=== PATIENT | female | born 1975 | race Caucasian/White ===

== ENCOUNTER 2020-02-05 05:34 | Day surgery (SDC) | payer OTHER ==
[2020-02-05] VITALS (9 sets, daily range): BP systolic 92–120; BP diastolic 51–74; PULSE 68–77; TEMP 98.1–98.2
[~2020-02-05] VITALS: Ht 170.2 cm; Wt 77.3 kg
[2020-02-05] MEDS ORDERED: NORCO 325 MG-51 TAB PO ×2 (06:32→10:44)
--- NOTE | 2020-02-05 09:50 | NUR ---
Patient returns to room 7 per cart from surgery and arouses to verbal stimuli. IV fluids infusing and site is free of redness. Temp 98.6 and room air sats 96%. Siderails up x2 and call light in reach. Foot of cart elevated and ice on the left ankle. Toes warm to touch. Son Angel in the room to interpret as needed.
--- NOTE | 2020-02-05 10:05 | NUR ---
Taking few sips of water. Denies pain or nausea when asked. States that the left leg is numb due to block placed pre-op for post op pain control. Foot of cart remains elevated.
--- NOTE | 2020-02-05 10:20 | NUR ---
Continues to rest without complaints of pain or nausea.
--- NOTE | 2020-02-05 10:35 | NUR ---
Taking few sips of water. Rests with eyes closed when not disturbed.
[2020-02-05] MEDS ORDERED: ROXICODONE 55 MG/TAB PO (10:43)
--- NOTE | 2020-02-05 10:50 | NUR ---
Continues to rest with eyes closed.
--- NOTE | 2020-02-05 11:20 | NUR ---
Continues to rest with eyes closed and offers no complaints of discomfort.
--- NOTE | 2020-02-05 11:50 | NUR ---
More awake now and taking sips of water.
--- NOTE | 2020-02-05 12:10 | NUR ---
Eating toast, sipping on coffee, and water.
--- NOTE | 2020-02-05 12:50 | NUR ---
Eating applesauce and sipping on Coke.
--- NOTE | 2020-02-05 13:30 | NUR ---
Resting with eyes closed and allowed to rest.
--- NOTE | 2020-02-05 13:50 | NUR ---
Patient assisted up to the bathroom and gait steady with the use of crutches. Foot of cart is elevated and ice on the left ankle.
--- NOTE | 2020-02-05 14:05 | NUR ---
Noted to have scant amount of pink tinged serous drainage on lateral dressing. Office notified of scant drainage and reinforced with JASSI and toño. Patient's son Angel in the room and is interpreting and given dismissal instructions. Reinforced need to keep the left leg elevated above the level of heart and to report drainage, fever, or any questions and concerns. IV discontinued and site is free of redness.
--- NOTE | 2020-02-05 14:11 | NUR ---
Patient dismissed to home per private vehicle driven by spouse and taken to the front door by wheelchair and assisted into car by family with dismissal instructions in hand.
== END 2020-02-05 14:11 | disposition home or self-care (01) ==
LOC: SDCO 05:34
DX: S82.852A Displaced trimalleolar fracture of left lower leg, initial encounter for closed fracture (principal); G89.18 Other acute postprocedural pain; W10.9XXA Fall (on) (from) unspecified stairs and steps, initial encounter
CPT/HCPCS: C1713; J0690; J1100; J1885; J2250; J2405; J2704; J3010; J7120